=== PATIENT | female | born 1940 | race Caucasian/White ===

== ENCOUNTER 2020-01-26 09:31 | Outpatient (CLI) | payer MEDICARE, SELFPAY ==
--- NOTE | ~2020-01-26 | CT_ITS ---
EXAMINATION: CT abdomen pelvis w con INDICATION: Urothelial carcinoma TECHNIQUE: Computed tomographic images of the abdomen and pelvis were obtained after the administrati on of 100 cc of Omnipaque 350 intravenous contrast. The dose-length product (DLP) was 169.72 mGy-cm. Automated exposure control and iterative reconstruction technique were employed. COMPARISON: 06/23/2019, 02/22/2019 FINDINGS: Minimal dependent atelectasis is present in the lung bases. The heart size is normal. The l iver, spleen, pancreas, and gallbladder are normal. There is chronic thickening of the adrenal glands . Severe right hydroureteronephrosis is unchanged. A 9 mm stone previously described in the left kidn ey has migrated to the distal left ureter and causes moderate left hydroureteronephrosis. The bladder is incompletely distended. There appears to be minimal wall thickening of the left posterolateral bl adder wall which has improved since the comparison examinations. There is a stable 6 cm cystic lesion of the left adnexa. There is calcified atherosclerosis of the aorta and many of the other arteries. No pathologically enlarged abdominal or pelvic lymph nodes are identified. There is no free intraperi toneal gas or evidence of bowel obstruction. An L5 compression fracture is not significantly changed. IMPRESSION: 1. Likely persistent, but improved, left posterolateral bladder wall thickening, consistent with urot helial carcinoma. 2. 9 mm stone in the distal left ureter causing moderate left hydroureteronephrosis. 3. Stable chronic severe right hydroureteronephrosis. 4. Stable cystic lesion of the left adnexa, suspicious for neoplasm. Reviewed, dictated and finalized at location A. IMPRESSION: 1. Likely persistent, but improved, left posterolateral bladder wall thickening , consistent with urothelial carcinoma. 2. 9 mm stone in the distal left ureter causing moderate left hydroureteronephr osis. 3. Stable chronic severe right hydroureteronephrosis. 4. Stable cystic lesion of the left adnexa, suspicious for neoplasm.
[2020-01-26 10:06] LABS: Estimated Glomerular Filt Rate 43
== END 2020-01-26 09:32 | disposition home or self-care (01) ==
LOC: ANHIMG 09:38
PROVIDERS: PCP Family Medicine Adolescent Medicine; Visit Provider Internal Medicine Hematology & Oncology
DX: C67.9 Malignant neoplasm of bladder, unspecified (principal); N20.1 Calculus of ureter
CPT/HCPCS: 36415; 74177; Q9967

== ENCOUNTER 2020-03-14 11:36 | Outpatient (CLI) | payer MEDICARE, SELFPAY ==
--- NOTE | ~2020-03-14 | CT_ITS ---
EXAMINATION: CT abdomen pelvis wo con DATE: 03/14/2020 12:31 INDICATION: Left ureteral stone. Urothelial carcinoma of the bladder. TECHNIQUE: Computed tomography (CT) of the abdomen and pelvis was performed without intravenous contr ast. The dose-length product was 170.10 mGy-cm. Automated exposure control and iterative reconstructi on technique were employed. COMPARISON: CT dated 01/26/2020. FINDINGS: Lung bases are unremarkable. Heart size normal. Small pericardial effusion. Trace right ple ural effusion. Moderate atherosclerosis. The liver, spleen, pancreas, adrenal glands are unremarkable. There is severe right hydroureteronephr osis to the bladder level. Interval passage of distal left ureteral stone since prior examination. No nobstructive bowel gas pattern. There is moderate left hydroureteronephrosis. Stable 6.3 cm cm left a dnexal cyst.. Moderate diffuse atherosclerosis. No evidence for aortic aneurysm. Right inguinal herni a containing nonobstructed bowel. Mild superior endplate compression deformity of L5 unchanged. There is dextroscoliosis. Posterior bladder wall thickening redemonstrated, consistent with known urotheli al carcinoma. IMPRESSION: 1. Persistent posterior bladder wall thickening, consistent with known urothelial carcinoma. 2: Interval passage of 9 mm distal left ureteral stone. Persistent moderate left hydroureteronephrosi s. 3: Stable cystic left adnexal mass, suspicious for neoplasm. 4: Stable chronic severe right hydronephrosis. Reviewed, dictated and finalized at location A. IMPRESSION: 1. Persistent posterior bladder wall thickening, consistent with known urotheli al carcinoma. 2: Interval passage of 9 mm distal left ureteral stone. Persistent moderate lef t hydroureteronephrosis. 3: Stable cystic left adnexal mass, suspicious for neoplasm. 4: Stable chronic severe right hydronephrosis.
== END 2020-03-14 11:37 | disposition home or self-care (01) ==
PROVIDERS: PCP Family Medicine Adolescent Medicine; Visit Provider Urology
DX: N20.1 Calculus of ureter (principal); D35.02 Benign neoplasm of left adrenal gland
CPT/HCPCS: 74176

== ENCOUNTER 2020-03-21 00:34 | Outpatient (CLI) | payer MEDICARE, SELFPAY ==
[2020-03-21 18:58] LABS: SARS-CoV-2 RNA PCR Negative
== END 2020-03-21 00:35 | disposition home or self-care (01) ==
LOC: ANHCOVIDDT 00:34
PROVIDERS: PCP Family Medicine Adolescent Medicine; Visit Provider Urology
DX: Z01.818 Encounter for other preprocedural examination (principal); Z11.59 Encounter for screening for other viral diseases
CPT/HCPCS: 87635; C9803; U0003

== ENCOUNTER 2020-03-23 01:50 | Day surgery (SDC) | payer MEDICARE, SELFPAY ==
--- NOTE | 2020-03-17 10:54 | PM.HPGS ---
History of Present Illness History of Present Illness Consent: Risks, benefits, and alternatives have been discussed and questions answered. Patient agrees to proceed with procedure. Chief complaint: bladder CA, hydronephrosis Narrative: Ary Howard is a 79 year old female with a known history of muscle invasive bladder cancer, status post chemoradiation. During the course in of recent follow-up a CT scan of the abdomen and pelvis showed new onset left hydronephrosis. Initially she had a 9 mm stone in the distal ureter but on subsequent imaging the stone was, but hydronephrosis persisted. He has known chronic right hydronephrosis is unchanged. Review of Systems Cardiovascular: Cardiovascular: Denies chest pain, Denies lightheadedness, Denies palpitations and Denies dyspnea Respiratory: Respiratory: Denies dyspnea Gastrointestinal: Gastrointestinal: Denies diarrhea, Denies nausea and Denies vomiting Genitourinary: Genitourinary: Denies hematuria and Denies dysuria Endocrine: Endocrine: Denies palpitations Meds Home Medications and Allergies Home Medications Medication Instructions Recorded Confirmed Type Lactobacillus acidophilus 2 tablet PO BID 08/02/19 12/17/19 History acetaminophen 650 mg PO Q6H PRN 08/02/19 12/17/19 History diphenhydramine HCl 25 mg PO Q6H PRN 08/02/19 12/17/19 History ergocalciferol (vitamin D2) 50,000 unit PO WEEKLY 08/02/19 12/17/19 History [Drisdol] guaifenesin 600 mg PO Q12H PRN 08/02/19 12/17/19 History loperamide 2 mg PO Q4H PRN 08/02/19 12/17/19 History melatonin 10 mg PO HS PRN 08/02/19 12/17/19 History oxycodone 5 mg PO Q4H PRN 08/02/19 12/17/19 History pantoprazole 40 mg PO QAM 08/02/19 12/17/19 History prochlorperazine maleate 5 mg PO Q8H PRN 08/02/19 12/17/19 History calcium carbonate [Calcium 500] 500 mg PO DAILY 10/11/19 12/17/19 History benzonatate 100 mg PO TID PRN 12/17/19 12/17/19 History multivitamin 1 cap PO DAILY 12/17/19 12/17/19 History sodium chloride [[place] Nasal] 2 spray INTRANASAL Q2H 12/17/19 12/17/19 History Allergies Allergy/AdvReac Type Severity Reaction Status Date / Time Sulfa (Sulfonamide Allergy Severe CONVULSIONS Verified 04/11/19 12:23 Antibiotics) cephalexin Allergy Unknown Swelling Verified 04/12/19 10:08 Penicillins Allergy Unknown Unknown Verified 04/11/19 12:23 morphine AdvReac Unknown Other Verified 04/11/19 12:23 Exam Const: General: no acute distress Resp: Effort & Inspection: normal respiratory effort GI: Inspection: non-distended GI Palp: No abdominal tenderness and No Guarding due to palpation present (GI) Auscultation: normal bowel sounds Assessment and Plan Assessment and plan (1) Hydronephrosis: Code(s): N13.30 - Unspecified hydronephrosis Status: Acute Assessment and Plan: Cystoscopy with left ureteroscopy and possible left ureteral stent placement
[2020-03-22 09:07] VITALS: BMI 20.9
[2020-03-23] VITALS (7 sets, daily range): BP systolic 102–150; BP diastolic 58–89; PULSE 68–79; RESP 16–22; TEMP 36.1–37.3; O2SAT 94–100
--- NOTE | ~2020-03-23 | XR_ITS ---
EXAMINATION: XR retrograde pyelogram LT DATE: 03/23/2020 08:56 INDICATION: Left ureteral stone TECHNIQUE: 85 fluoroscopic images of the abdomen and pelvis were obtained during procedure performed by Dr. Huber. Radiologist was not present for the imaging or procedure. The amount of fluoroscopy ti me used during this procedure was 1.0 minutes. COMPARISON: CT dated 03/14/2020 FINDINGS: Retrograde contrast opacification of the left ureter and renal collecting system demonstrates moderat e hydroureteronephrosis. There are couple mobile filling defects within the mid left ureter which danielle ear to change in size and subsequently coalesce favoring gas bubbles over ureteral stones. Partially visualized internal fixation at the proximal right femur. Lumbar dextroscoliosis. IMPRESSION: 1. Moderate left hydroureteronephrosis. Mobile filling defects seen on the retrograde pyelogram are f elt more likely to represent gas bubbles than renal stones. Correlate with procedure note. Reviewed, dictated and finalized at location A. IMPRESSION: 1. Moderate left hydroureteronephrosis. Mobile filling defects seen on the retr ograde pyelogram are felt more likely to represent gas bubbles than renal stone s. Correlate with procedure note.
--- NOTE | 2020-03-23 06:54 | WPDHPUPDATE1 ---
History and Physical Update Update Date/Time: 03/23/20 06:54 History and Physical has been reviewed, including an updated exam of the patient. There are NO changes in the patient's condition. Risks, benefits, and alternatives have been discussed and questions answered. Patient agrees to proceed with procedure.
[2020-03-23] MEDS: LACTATED RINGERS 1,000 ML 30 ML IV CONT (07:43)
--- NOTE | 2020-03-23 07:47 | WPDANESEPPF ---
Anes - Initial Pre Proc Eval Procedure: Operation Date: 03/23/20 08:30 Proposed Procedures p Cystoscopy, Left Ureteroscopy, Possible Left Ureteral Stent - Quincy Huber MD Date/Time: 03/23/20 07:47 Surgeon: Quincy Huber MD Pre Op Diagnosis: bladder CA, hydronephrosis Patient Data Age: 79 Gender: F Height: 4 ft 9 in Weight: 42.9 kg Last Vital Signs Temp 37.3 C 03/23/20 07:00 Pulse 76 03/23/20 07:00 Resp 18 03/23/20 07:00 BP 131/61 03/23/20 07:00 Pulse Ox 98 03/23/20 07:00 Allergies Allergy/AdvReac Type Severity Reaction Status Date / Time Sulfa (Sulfonamide Allergy Severe CONVULSIONS Verified 03/23/20 07:36 Antibiotics) cephalexin Allergy Unknown Swelling Verified 03/23/20 07:36 morphine Allergy Unknown Hives Verified 03/23/20 07:36 Penicillins Allergy Unknown Unknown Verified 03/23/20 07:36 Home Medications Medication Instructions Recorded Confirmed Type Lactobacillus acidophilus 2 tablet PO BID 08/02/19 03/23/20 History acetaminophen 650 mg PO Q6H PRN 08/02/19 03/23/20 History diphenhydramine HCl 25 mg PO Q6H PRN 08/02/19 03/23/20 History ergocalciferol (vitamin D2) 50,000 unit PO WEEKLY 08/02/19 03/23/20 History [Drisdol] guaifenesin 600 mg PO Q12H PRN 08/02/19 03/23/20 History loperamide 2 mg PO Q4H PRN 08/02/19 03/23/20 History melatonin 10 mg PO HS PRN 08/02/19 03/23/20 History pantoprazole 40 mg PO QAM 08/02/19 03/23/20 History prochlorperazine maleate 5 mg PO BID PRN 08/02/19 03/23/20 History calcium carbonate [Calcium 500] 500 mg PO DAILY 10/11/19 03/23/20 History benzonatate 100 mg PO Q6H PRN 12/17/19 03/23/20 History multivitamin 1 cap PO DAILY 12/17/19 03/23/20 History sodium chloride [[place] Nasal] 2 spray INTRANASAL Q2H PRN 12/17/19 03/23/20 History hydrocodone-acetaminophen 0.5 - 1 tablet PO Q4-6H PRN 03/22/20 03/23/20 History hyoscyamine sulfate 0.125 mg PO Q6H PRN 03/22/20 03/23/20 History prochlorperazine maleate 5 mg PO DAILY 03/22/20 03/23/20 History tamsulosin 0.4 mg PO DAILY 03/22/20 03/23/20 History Patient hx anesthesia problems: none Family hx anesthesia problems: none [facility] Past Medical History Medical History CHF (congestive heart failure) DVT (deep venous thrombosis) GERD (gastroesophageal reflux disease) Hx of migraines Anes - Eval Final PreProcedure Day of Procedure 03/23/20 07:47 Patient weight: normal Heart: regular rate and rhythm Lungs: clear to auscultation Airway: Mallampati scale class II Neurological: other (alert) Last oral intake: >/= 8 hours ASA classification: III Emergent: no Anesthetic plan: proceed Anesthesia type and monitoring: general LMA and standard monitoring Informed Consent: The patient's anesthetic plan and its attendant risks and benefits were discussed with the patient/family/POA. Questions were solicited and answers provided to the satisfaction of the patient/family/POA.
[2020-03-23] MEDS: levoFLOXacin 500 MG/D5W 100 ML 500 MG/100 ML BAG 100 MG IVPB (08:39)
--- NOTE | 2020-03-23 08:42 | P.OP_ITS ---
Procedure Note - Detailed Date of procedure: 03/23/20 Pre-op diagnosis: bladder CA, hydronephrosis Post-op diagnosis: same Procedure performed: 1. Cystoscopy, left RPG. 2. Left ureteroscopy. 3. Cystogram Description of procedure: patient is brought to the operative suite where she was prepped and draped in routine sterile fashion after the uneventful induction of a general anesthetic. Cystoscopy is undertaken with a 19 F rigid cystoscope. Bladder mucosa is absolutely normal without any suggestion of recurrence neoplasm. Has a single ureteral orifice bilaterally. The left ureteral orifice appears somewhat fixed and I suspect she may have vesicoureteral reflux. An 8 F bulb tip catheter was used to obtain a left retrograde pyelogram and there is no points of obstruction, filling defect or significant hydronephrosis at this time. I did place a 0.035 in glidewire, dilate the distal ureter and perform rigid ureteroscopy to the iliac vessels. There is no mucosal defects or other pathology identifiable in the left ureter. Did a gravity cystogram, filling her bladder with 250 cc of contrast. I could not demonstrate vesicoureteral reflux. This point bladder was emptied the patient was taken recovery in good condit ion. Anesthesia: GLMA Surgeon: Quincy Huber MD Estimated blood loss (mL): 0 Drains: No Packing: No Pathology: none sent Complications: No immediate complications Condition: stable Disposition: PACU
== END 2020-03-23 10:23 | disposition home or self-care (01) ==
PROVIDERS: PCP Family Medicine Adolescent Medicine; Referring Provider Family Medicine; Visit Provider Urology
PROC: (CPT 52352; principal; 2020-03-23 08:30)
DX: N13.30 Unspecified hydronephrosis (principal); Z85.51 Personal history of malignant neoplasm of bladder; Z92.21 Personal history of antineoplastic chemotherapy; Z92.3 Personal history of irradiation; I50.9 Heart failure, unspecified; K21.9 Gastro-esophageal reflux disease without esophagitis; Z86.718 Personal history of other venous thrombosis and embolism
CPT/HCPCS: 52005; 74420; A9270; C1758; C1769; J1100; J1956; J2370; J2405; J2704; J3010; J7120; Q9966

== ENCOUNTER 2020-07-24 08:44 | Outpatient (CLI) | payer MEDICARE, SELFPAY ==
--- NOTE | ~2020-07-24 | CT_ITS ---
EXAMINATION: CT abdomen pelvis w con INDICATION: Malignant neoplasm of the urinary bladder TECHNIQUE: Computed tomographic images of the abdomen and pelvis were obtained after the administrati on of 100 cc of Omnipaque 350 intravenous contrast. The dose-length product (DLP) was 182.84 mGy-cm. Automated exposure control and iterative reconstruction technique were employed. COMPARISON: 03/14/2020 FINDINGS: Minimal dependent atelectasis is present in the lung bases. The heart size is normal. There is a small sliding hiatal hernia. The liver, spleen, pancreas, and gallbladder are normal. Chronic t hickening of the adrenal glands is unchanged. The left hydroureteronephrosis seen on the most recent comparison examination has resolved. There is severe, unchanged right hydroureteronephrosis. No patho logically enlarged abdominal or pelvic lymph nodes are identified. There is no free intraperitoneal g as or evidence of bowel obstruction. There is calcified atherosclerosis of the aorta and many of the other arteries. Orthopedic hardware is present in right femur. There is a chronic 5.8 cm cystic lesio n of the left adnexa. There is severe lumbar spondylosis. A chronic L5 compression fracture is unchan ged. IMPRESSION: 1. Interval resolution of the previously described left hydroureteronephrosis. 2. Chronic and unchanged severe right hydroureteronephrosis. 3. Stable cystic lesion of the left adnexa. Reviewed, dictated and finalized at location A.
[2020-07-24 09:19] LABS: Estimated Glomerular Filt Rate 39
== END 2020-07-24 08:45 | disposition home or self-care (01) ==
PROVIDERS: PCP Family Medicine Adolescent Medicine; Visit Provider Internal Medicine Hematology & Oncology
DX: C67.9 Malignant neoplasm of bladder, unspecified (principal); N13.30 Unspecified hydronephrosis
CPT/HCPCS: 74177; Q9967

== ENCOUNTER 2021-01-03 13:16 | Outpatient (CLI) | payer MEDICARE, SELFPAY ==
--- NOTE | ~2021-01-03 | CT_ITS ---
EXAMINATION: CT abdomen pelvis wo con DATE: 01/03/2021 13:49 INDICATION: Urinary bladder carcinoma, restaging TECHNIQUE: Computed tomography (CT) of the abdomen and pelvis was performed without intravenous contr ast. Automated exposure control and iterative reconstruction technique were employed. Exam dose: 192 .83 mGy-cm total exam DLP. COMPARISON: 07/24/2020 CT abdomen pelvis FINDINGS: Emphysematous changes are noted in the lower lung zones. There is minimal discoid scarring or atelectasis in the left lower lobe and middle lobe. Heart size is within normal range. No pericardial or pleural effusion. The liver, gallbladder, bile ducts, spleen, pancreas and pancreatic duct appear unremarkable. The adrenal glands are unremarkable. No left renal mass lesion or left urinary tract calculus or hydroureteronephrosis is evident. There is severe right hydronephrosis and hydroureter as on 07/24/2020. There is suboptimal imaging of the pelvis due to streak artifact from right hip compression screw and intramedullary graham. There is moderate diffuse thickening of the urinary bladder wall. There is limit ed evaluation of the bladder without intravenous contrast material. Chronic approximately 6 cm cystic lesion of the left adnexal areas again noted. There is prominent material in the rectum and colon but no evidence of bowel obstruction. There is evidence of splenic calcification of the abdominal aorta but no aneurysm. No intraperitoneal or retroperitoneal or pelvic mass lesion or adenopathy or ascites is evident compared to 07/24/2020. There is scoliosis and degenerative change of the thoracic and lumbar spine. There is chronic compression fracture deformity of L5. IMPRESSION: No significant change since 08/01/2029 tom Reviewed, dictated and finalized at Location A. Reviewed, dictated and finalized at location B.
== END 2021-01-03 13:17 | disposition home or self-care (01) ==
PROVIDERS: PCP Family Medicine; Referring Provider Internal Medicine Hematology & Oncology; Visit Provider Urology
DX: C67.8 Malignant neoplasm of overlapping sites of bladder (principal); S32.059A Unspecified fracture of fifth lumbar vertebra, initial encounter for closed fracture; N85.8 Other specified noninflammatory disorders of uterus; M47.815 Spondylosis without myelopathy or radiculopathy, thoracolumbar region; M41.9 Scoliosis, unspecified
CPT/HCPCS: 74176

== ENCOUNTER → 2022-01-09 10:03 | Outpatient (CLI) | payer MEDICARE, SELFPAY ==
--- NOTE | ~2022-01-09 | CT_ITS ---
EXAMINATION: CT abdomen pelvis wo con DATE: 01/09/2022 10:57 INDICATION: Malignant neoplasm of the urinary bladder; radiation and chemotherapy TECHNIQUE: Computed tomography (CT) of the abdomen and pelvis was performed without intravenous contr ast. Automated exposure control and iterative reconstruction technique were employed. Exam dose: 278 .59 mGy-cm total exam DLP. COMPARISON: 12/30/2020 CT abdomen pelvis FINDINGS: Emphysematous changes are noted. No consolidation at the lung bases. Normal heart size. Coronary artery calcification. No pericardial or pleural effusion. Small sliding hiatal hernia. The liver, gallbladder, bile ducts, spleen, pancreas and pancreatic duct as well as the adrenal gland s are unremarkable on this limited noncontrast examination. No left renal mass lesion, left urinary tract calculus or hydronephrosis. Again noted is severe right hydroureteronephrosis, with thinning of the cortex of the mid and lower a spect of the right kidney. 3.3 x 4.3 cm left ovarian cystic lesion is noted. The urinary bladder is relatively evacuated, not optimally evaluated on this noncontrast examination. Diverticulosis of the colon; no CT evidence of diverticulitis. No bowel obstruction is detected. There is hardware in the proximal right femur. Scoliosis and degenerative change of the thoracic and lumbar spine. IMPRESSION: Persistent severe right hydroureteronephrosis 3.3 x 4.3 cm left ovarian cystic lesion Diverticulosis of the left colon; no CT evidence of diverticulitis Reviewed, dictated and finalized at Location A. Reviewed, dictated and finalized at location A.
--- NOTE | ~2022-01-09 | DEXA_ITS ---
Bone Density Report Name: FABRICIO BUTTERFIELD Age: 81 Sex: Female Ethnicity: White Date of : 1940 Indication: postmenopausal; screening for osteoporosis; parental hip fracture; height loss; prior fracture; Referring Provider: Reyes eRdmond Study: Bone densitometry was performed. Exam Date: January 09, 2022 Accession number: [id number] Bone Density: Region BMD T-score Z-score Classification AP Spine (L1-L4) 0.693 -3.2 -0.5 Osteoporosis Femoral Neck (Left) 0.361 -4.4 -2.0 Osteoporosis Total Hip (Left) 0.444 -4.1 -1.9 Osteoporosis World Health Organization criteria for BMD impression classify patients as: Normal (T-score at or above -1.0), Osteopenia (T-score between -1.0 and -2.5), or Osteoporosis (T-score at or below -2.5). 10-year Fracture Risk: FRAX not reported because: Some T-score for Spine Total or Hip Total or Femoral Neck at or below -2.5 Prior hip or vertebral fracture Treated for osteopor Clinical Information Provided by Patient: Have had a previous hip or vertebral fracture Has had a low trauma fracture Parent has had a hip fracture Is being treated for osteoporosis Has used the following medications: Prolia (i.e. denosumab), Vitamin D, Calcium Patient maximum height was 64 Menopause Age: 44 No regular weight bearing exercise Drinks caffeinated beverages Onset of menses at age 11 Number of children 1 Impression: The patient has established osteoporosis, based on the Left Femoral Neck T-score and the existence of a prior fracture. The patient has risk factors, including: parental hip fracture, previous fracture. Discussion: It is important to ask patients whether they are taking their medications and to encourage continued and appropriate compliance with their osteoporosis therapies to reduce fracture risk. It is also important to review their risk factors and encourage appropriate calcium and vitamin D intakes, exercise, fall prevention and other lifestyle measures. Follow-Up: Consider a repeat BMD and Vertebral Fracture Assessment (VFA) exam in 2 years or sooner if medically necessary, to reassess this patient's status. Reported by: [facility] on 01/09/2022 10:36:00 AM. Reviewed, dictated and finalized at location ALuz HAYES
== END ==
PROVIDERS: PCP Family Medicine; Visit Provider Internal Medicine Hematology & Oncology
DX: M81.0 Age-related osteoporosis without current pathological fracture (principal); C67.9 Malignant neoplasm of bladder, unspecified; N83.202 Unspecified ovarian cyst, left side; K57.30 Diverticulosis of large intestine without perforation or abscess without bleeding; I25.10 Atherosclerotic heart disease of native coronary artery without angina pectoris; K44.9 Diaphragmatic hernia without obstruction or gangrene; N13.2 Hydronephrosis with renal and ureteral calculous obstruction; M41.9 Scoliosis, unspecified
CPT/HCPCS: 74176; 77080

== ENCOUNTER 2022-10-18 08:25 | Outpatient (CLI) | payer MEDICARE, SELFPAY ==
--- NOTE | ~2022-10-18 | CT_ITS ---
EXAMINATION: CT abdomen pelvis wo con DATE: 10/18/2022 08:51 INDICATION: Malignant neoplasm of bladder; restaging TECHNIQUE: Computed tomography (CT) of the abdomen and pelvis was performed without intravenous contr ast. Automated exposure control and iterative reconstruction technique were employed. Exam dose: 230 .58 mGy-cm total exam DLP. COMPARISON: 01/09/2022 CT abdomen pelvis FINDINGS: Minimal atelectasis and/or scarring at the lung bases. Heart size is normal. No pericardial or pleural effusion. Small sliding hiatal hernia. The liver, gallbladder, bile ducts, spleen, pancreas and pancreatic duct are unremarkable. The adrena l glands are unremarkable. No left renal mass lesion, left urinary tract calcification or hydroureteronephrosis. Persistent severe right hydroureteronephrosis is again noted with prominent thinning of the cortex of the lower pole of the right kidney particularly, not significantly changed since 01/09/2022. Moderate diffuse thickening of the urinary bladder wall. No intraluminal bladder lesion or focal blad brent wall soft tissue mass lesion is identified. Approximately 4 cm x 4.7 cm left ovarian cystic lesion, previously measuring 3.3 x 4.3 cm on . Consider pelvic ultrasound for further characterization. Atherosclerotic calcification but normal caliber of the abdominal aorta and iliac arteries. No intrap eritoneal or retroperitoneal or pelvic mass lesion or adenopathy or ascites, other than the left ovar gerardo cystic lesion. There is a prominent of fecal material in the rectum and colon. Diverticulosis of the sigmoid colon; no CT evidence of diverticulitis. No bowel obstruction, bowel wall thickening, pneumatosis or intrape ritoneal free air is detected. Nail and screw are again noted in the proximal right femur. There is prominent dextroscoliosis and multilevel degenerative disc disease of the lower thoracic and lumbar spine. No suspicious osteolytic or osteoblastic lesions. IMPRESSION: Persistent severe right hydroureteronephrosis Mildly increased size of left ovarian cystic lesion, measuring 4 x 4.7 cm versus 3.3 x 4.3 cm on 01/09. Consider pelvic ultrasound correlation Reviewed, dictated and finalized at Location A. Reviewed, dictated and finalized at location B. [employer] IMPRESSION: Persistent severe right hydroureteronephrosis Mildly increased size of left ovarian cystic lesion, measuring 4 x 4.7 cm versu s 3.3 x 4.3 cm on 01/09/2022. Consider pelvic ultrasound correlation
== END 2022-10-18 08:26 | disposition home or self-care (01) ==
PROVIDERS: PCP Family Medicine; Visit Provider Internal Medicine Hematology & Oncology
DX: C67.9 Malignant neoplasm of bladder, unspecified (principal)
CPT/HCPCS: 74176

== ENCOUNTER 2022-10-28 10:51 | Outpatient (CLI) | payer MEDICARE, SELFPAY ==
--- NOTE | ~2022-10-28 | US_ITS ---
EXAMINATION: US pelvic complete DATE: 10/28/2022 12:28 INDICATION: Left ovarian lesion. Comparison:Ultrasound dated 02/08/2018 TECHNIQUE: Multiple transabdominal and endovaginal sonographic images of the pelvis performed. FINDINGS: The uterus measures 3.9 x 1.3 x 2.6 cm. The endometrial complex measures 2 mm. The left ovary measures 5.7 x 3.7 x 3.2 cm. There is a left ovarian cyst measuring 2.4 cm. The right ovary is not visualized. There is no free fluid in the pelvis. There are no abnormal masses seen on either side. IMPRESSION: 1. Left ovarian cyst measuring 4.4 cm. Reviewed, dictated and finalized at location A. [employer]
== END 2022-10-28 10:52 | disposition home or self-care (01) ==
PROVIDERS: PCP Family Medicine; Visit Provider Internal Medicine Hematology & Oncology
DX: N83.202 Unspecified ovarian cyst, left side (principal)
CPT/HCPCS: 76856

== ENCOUNTER 2023-04-23 08:30 | Outpatient (CLI) | payer MEDICARE, SELFPAY ==
--- NOTE | ~2023-04-23 | CT_ITS ---
CT of the Abdomen and Pelvis: Indication: Urinary bladder carcinoma Technique: 2.5 mm axial scans were obtained through the abdomen and pelvis following intravenous adm inistration of 100 cc of Omnipaque 350. Dose reduction technique was used on this scan by utilizing a utomated exposure control and iterative reconstruction technique. The dose-length product (DLP) was 2 47.64 mGy-cm. COMPARISON: 10/18/2022 Findings: Scans through the lung bases are unremarkable. The liver, spleen, pancreas, gallbladder, adrenals and left kidney are within normal limits. There is severe right hydroureteronephrosis with cortical thinning, especially involving the lower pole. No e vidence of aortic aneurysm. No lymphadenopathy. No bowel obstruction or bowel wall thickening. There is no evidence to suggest acute appendicitis. Images through the pelvis were performed. No definite abnormality of the urinary bladder identified. 5.2 cm cystic mass in the left adnexal region is similar to prior exam. Impression: No distinct abnormality of the urinary bladder identified. Stable severe right hydroureteronephrosis, especially involving the lower pole. Cystic mass in the left adnexal region is similar to prior exam. Reviewed, dictated and finalized at [facility]. Impression: No distinct abnormality of the urinary bladder identified. Stable severe right hydroureteronephrosis, especially involving the lower pole. Cystic mass in the left adnexal region is similar to prior exam.
[2023-04-23 08:55] LABS: Estimated Glomerular Filt Rate 36
== END 2023-04-23 08:31 | disposition home or self-care (01) ==
PROVIDERS: PCP Family Medicine; Visit Provider Internal Medicine Hematology & Oncology
DX: C67.9 Malignant neoplasm of bladder, unspecified (principal)
CPT/HCPCS: 36415; 74177; 80053; 85025; Q9967

== ENCOUNTER 2023-10-16 08:26 | Outpatient (CLI) | payer MEDICARE, SELFPAY ==
--- NOTE | ~2023-10-16 | CT_ITS ---
CT of the Abdomen and Pelvis: Indication: Urinary bladder cancer Technique: 2.5 mm axial scans were obtained through the abdomen and pelvis following intravenous adm inistration of 100 cc of Omnipaque 350. Dose reduction technique was used on this scan by utilizing a utomated exposure control and iterative reconstruction technique. The dose-length product (DLP) was 2 53.36 mGy-cm. COMPARISON: 04/23/2023 Findings: Scans through the lung bases are unremarkable. The liver, spleen, pancreas, gallbladder, adrenals and left kidney are within normal limits. Stable s evere right hydroureteronephrosis, especially involving the lower pole. There are atherosclerotic myra cifications of the aorta. No lymphadenopathy. No bowel obstruction or bowel wall thickening. There is no evidence to suggest acute appendicitis. Images through the pelvis are mildly degraded by streak artifact from right hip orthopedic hardware. No gross abnormality of the urinary bladder identified. Cystic mass in the posterior left pelvis is u nchanged. No ascites. Impression: No significant change from prior exam. No definite evidence for active malignancy or metastatic disea se. Stable severe right hydroureteronephrosis, especially involving the lower pole. Stable cystic mass in the posterior left pelvis. Reviewed, dictated and finalized at location M. ERCIAL BANKER Impression: No significant change from prior exam. No definite evidence for active malignan cy or metastatic disease. Stable severe right hydroureteronephrosis, especially involving the lower pole. Stable cystic mass in the posterior left pelvis.
[2023-10-16 09:01] LABS: Estimated Glomerular Filt Rate 47
== END 2023-10-16 08:27 | disposition home or self-care (01) ==
PROVIDERS: PCP Family Medicine; Visit Provider Internal Medicine Hematology & Oncology
DX: C67.9 Malignant neoplasm of bladder, unspecified (principal)
CPT/HCPCS: 74177; Q9967

== ENCOUNTER 2024-04-14 11:12 | Outpatient (CLI) | payer MEDICARE, SELFPAY ==
--- NOTE | ~2024-04-14 | CT_ITS ---
CT abdomen pelvis w con Ordering provider: Reyes Redmond MD History: 83 years Female with . Mal jesús of urinary bladder . Comparison: October 16, 2023 Technique: CT abdomen and pelvis with IV and without oral contrast. Automated exposure control and it erative reconstruction technique were employed. The dose-length product was 248.42 mGy-cm. 100 mL Omn ipaque 350 was given IV. Findings: VISUALIZED LOWER CHEST: Dependent atelectatic changes. UPPER ABDOMINAL ORGANS: Liver: Normal. Gallbladder: Normal. Spleen: Normal. Stomach/duodenum: Small sliding hiatus hernia. Thickened wall of the esophagus which may indicate ref lux esophagitis. Pancreas: Slightly prominent pancreatic duct unchanged from previous examination. Follow-up advised. Adrenals: Normal. Kidneys: Right hydronephrotic changes is seen slightly decreased compared to the previous examination . Dilated right ureter is noted. PELVIC ORGANS: The no definite mass is seen in the urinary bladder.. Minimal thickening of the wall is not excluded. Cystic area seen in the left side of the pelvis unchanged from previous examination and measures 4.5 x 4.9 CNM. BOWEL AND MESENTERY: Colon: Mild sigmoid diverticulosis without diverticulitis. Appendix is not demonstrated. Small Bowel: Normal. No obstruction. Peritoneum/mesentery: No free air. Trace of Free fluid in the right side of the pelvis. No mesenteric lymphadenopathy. RETROPERITONEUM: Mild atheromatous disease of the abdominal aorta. No retroperitoneal lymphadenopat hy. MUSCULOSKELETAL: Superficial soft tissues: The superficial soft tissues are normal. Bones: Age appropriate degenerative changes of the spine. Dextroscoliosis. Fixation of the right femo ral neck. Multilevel facet joint disease. IMPRESSION: 1. Hydronephrotic changes of the right kidney. Minimal change or no change from previous examination . 2. Cyst in the left side of the pelvis. 3. Small sliding hiatus hernia with thickening of the wall of the esophagus which may indicate reflu x esophagitis. 4. Minimal thickening of the wall of the urinary bladder which may be due to underfilling. 5. Other appearances are unchanged from previous examination. Reviewed, dictated and finalized at location A. IMPRESSION: 1. Hydronephrotic changes of the right kidney. Minimal change or no change fro m previous examination. 2. Cyst in the left side of the pelvis. 3. Small sliding hiatus hernia with thickening of the wall of the esophagus wh ich may indicate reflux esophagitis. 4. Minimal thickening of the wall of the urinary bladder which may be due to u nderfilling. 5. Other appearances are unchanged from previous examination.
[2024-04-14 11:43] LABS: Estimated Glomerular Filt Rate 43
== END 2024-04-14 11:13 ==
LOC: MICIMG 11:16
PROVIDERS: PCP Family Medicine; Visit Provider Internal Medicine Hematology & Oncology
DX: N32.89 Other specified disorders of bladder (principal); K44.9 Diaphragmatic hernia without obstruction or gangrene; C67.9 Malignant neoplasm of bladder, unspecified; N94.89 Other specified conditions associated with female genital organs and menstrual cycle
CPT/HCPCS: 74177; Q9967

== ENCOUNTER 2024-04-16 07:52 | Outpatient (CLI) | payer MEDICARE, SELFPAY ==
--- NOTE | ~2024-04-16 | DEXA_ITS ---
? Bone Density Report? Name:? FABRICIO BUTTERFIELD Patient ID:??? [id number] Age:? 83 Sex:? Female Ethnicity:? White Date of : 1940 Indication: postmenopausal; screening for osteoporosis; parental hip fracture; height loss; prior fracture; cancer; end stage renal disease; hysterectomy; Referring Provider: URSZULA MERRITT Study: Bone densitometry was performed. Exam Date: April 16, 2024 Accession number: [id number] Bone Density: Region? BMD??? T-score? Z-score?? Classification AP Spine(L1-L4)? 0.590?? -4.2? -1.3? Osteoporosis Femoral Neck (Left)? 0.394?? -4.1 ?-1.6? Osteoporosis Total Hip (Left)? 0.499?? -3.6? -1.3? Osteoporosis World Health Organization criteria for BMD impression classify patients as: Normal (T-score at or above -1.0), Osteopenia (T-score between -1.0 and -2.5), or Osteoporosis (T-score at or below -2.5). 10-year Fracture Risk: FRAX not reported because: ? Some T-score for Spine Total or Hip Total or Femoral Neck at or below -2.5 ? Prior hip or vertebral fracture ? Treated for osteoporosis Clinical Information Provided by Patient: Have had a previous hip or vertebral fracture Has had a low trauma fracture Parent has had a hip fracture Is being treated for osteoporosis Has used the following medications: Prolia (i.e. denosumab) Has the following medical conditions: Cancer, End stage renal disease, Hysterectomy Patient maximum height was 64 Menopause Age: 49 No regular weight bearing exercise Drinks caffeinated beverages Onset of menses at age 11 Number of children 1 Impression: The patient has established osteoporosis, based on the Total Spine T-score and the existence of a prior fracture. The patient has risk factors, including: parental hip fracture, previous fracture. Discussion: It is important to ask patients whether they are taking their medications and to encourage continued and appropriate compliance with their osteoporosis therapies to reduce fracture risk. It is also important to review their risk factors and encourage appropriate calcium and vitamin D intakes, exercise, fall prevention and other lifestyle measures. Follow-Up: Consider a repeat BMD and Vertebral Fracture Assessment (VFA) exam in 2 years or sooner if medically necessary, to reassess this patient's status. Reported by: Dr. Moiz Garcia on 04/19/2024 9:06:00 AM. MTDNataliia
== END 2024-04-16 07:53 | disposition home or self-care (01) ==
LOC: CHSIMG 07:57
PROVIDERS: PCP Family Medicine; Visit Provider Internal Medicine Hematology & Oncology
DX: Z78.0 Asymptomatic menopausal state (principal); M81.0 Age-related osteoporosis without current pathological fracture
CPT/HCPCS: 77080

== ENCOUNTER 2024-10-18 07:38 | Outpatient (CLI) | payer MEDICARE, SELFPAY ==
--- NOTE | ~2024-10-18 | CT_ITS ---
EXAMINATION: CT abdomen pelvis w con DATE: 10/18/2024 08:18 INDICATION: Malignant neoplasm of urinary bladder. TECHNIQUE: Computed tomography (CT) of the abdomen and pelvis was performed with 100 mL Omnipaque 350 intravenous contrast. Automated exposure control and iterative reconstruction technique were employe d. The dose-length product was 255.44 mGy-cm. COMPARISON: CT abdomen and pelvis 04/14/2024, 04/01/18, MRI 02/12/18, pelvis ultrasound 10/28/2022 FINDINGS: The visualized portions of the lung bases demonstrate mild atelectasis. No pleural effusion . The heart size is normal. No pericardial effusion. There is a small sliding hiatal hernia. The live r, spleen, pancreas, and adrenal glands are normal. 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 There is severe hydronephrosis of the right kidney lower pole. There is severe atrophy of t he right kidney lower pole. There is right hydroureter. There is mild atrophy of left kidney upper po le and moderate atrophy of left kidney lower pole. 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 There is a 2 mm wall calcification of the posterior bladder. There are surgical changes aroun d the left ureterovesicular junction. There is diverticulosis of the colon without evidence of divert iculitis. There are no dilated loops of bowel. The appendix is normal. There are no pathologically en larged lymph nodes. There is a trace pelvic ascites. There is a chronic 5.4 cm cyst in the left adnex a, likely benign. There is internal fixation of proximal right femur. There is thoracolumbar dextrosc oliosis and severe lumbar spondylosis. There is a chronic compression fracture of L5. IMPRESSION: 1. 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 2. 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 3. Chronic 5.4 cm cyst in the left adnexa, likely benign. Considered pelvis ultrasound in one year. Reviewed, dictated and finalized at location A. ETING INTELLIGENCE MANAGER IMPRESSION: 1. 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 2. 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 3. Chronic 5.4 cm cyst in the left adnexa, likely benign. Considered pelvis ult rasound in one year.
[2024-10-18 08:10] LABS: Estimated Glomerular Filt Rate 43
== END 2024-10-18 07:39 | disposition home or self-care (01) ==
PROVIDERS: PCP Family Medicine; Visit Provider Internal Medicine Hematology & Oncology
DX: C67.9 Malignant neoplasm of bladder, unspecified (principal); Q62.5 Duplication of ureter; N13.30 Unspecified hydronephrosis; N26.1 Atrophy of kidney (terminal); N83.202 Unspecified ovarian cyst, left side
CPT/HCPCS: 74177; Q9967